=== PATIENT | male | born 1995 | race Caucasian/White ===

== ENCOUNTER 2017-12-15 14:04 | Emergency (ER) | payer MEDICAID ==
[~2017-12-15] VITALS: Ht 167.6 cm; Wt 82.7 kg
[2017-12-15 14:25] VITALS: Ht 167.6 cm; Wt 82.7 kg
[2017-12-15 17:20] VITALS: BP 135/80
== END 2017-12-15 17:20 | disposition home or self-care (01) ==
LOC: ED 14:04
DX: S16.1XXA Strain of muscle, fascia and tendon at neck level, initial encounter (principal); S29.011A Strain of muscle and tendon of front wall of thorax, initial encounter; S40.812A Abrasion of left upper arm, initial encounter; V43.52XA Car driver injured in collision with other type car in traffic accident, initial encounter; Y92.414 Local residential or business street as the place of occurrence of the external cause